=== PATIENT | male | born 1960 | race Caucasian/White ===

== ENCOUNTER → 2018-10-27 | Outpatient (CLI) | payer BC ==
--- NOTE | 2018-10-27 12:03 | XR ---
EXAMINATION TYPE: XR chest 2V DATE OF EXAM: 10/27/2018 HISTORY: J44.0. REFERENCE: NONE. FINDINGS: Lung volumes are mildly prominent. The lungs are clear. Pleural spaces are clear. The heart is not enlarged. IMPRESSION: PLEASE CORRELATE FOR COPD.
== END | disposition home or self-care (01) ==
LOC: RADXRMAIN 11:36
PROVIDERS: ATTEND Family Medicine
DX: J44.0 Chronic obstructive pulmonary disease with (acute) lower respiratory infection (principal)
CPT/HCPCS: 71046

== ENCOUNTER 2019-12-16 06:49 | Day surgery (SDC) | payer BC ==
[2019-12-12 10:14] VITALS: BMI 36.9
[~2019-12-16 06:49] MED LIST: LACTATED RINGERS 1,000 ML IV SCH; LIDOCAINE 1% 20 ML VIAL (10MG/ML) FOR IV START INTRADERMA PRN
[2019-12-16 07:12] VITALS: TEMP 98.8
[2019-12-16] MEDS ORDERED: LIDOCAINE 1% INJ 10MG/ML (20 ML MDV) ONE (07:30)
[2019-12-16] MEDS ORDERED: PROPOFOL 10 MG/ML 20 ML VIAL IV ONE (07:30)
[2019-12-16 08:12] VITALS: RESP 16
--- NOTE | 2019-12-16 08:13 | P.PCN ---
Date of Procedure: 12/16/19 Description of Procedure: BRIEF HISTORY: Patient is a 59-year-old male with a past medical history of colon polyps here for follow-up with outpatient colonoscopy. Reports last colonoscopy in 2014. Physical history of colon polyps in past. No family history of colon cancer. No change in bowel habits, blood per rectum or abdominal pain. PROCEDURE PERFORMED: Colonoscopy with polypectomy . PREOPERATIVE DIAGNOSIS: History of colon polyps, last colonoscopy 2014 ESTIMATED BLOOD LOSS: Minimal. IV sedation per Anesthesia. PROCEDURE: After informed consent was obtained, the patient, was brought into the endoscopy unit. IV sedation was administered by Anesthesia under continuous monitoring. Digital rectal examination was normal. Initially the Olympus CF-190 flexible video colonoscope was then inserted in the rectum, gradually advanced into the cecum without any difficulty. Careful examination was performed as the scope was gradually being withdrawn. Ileocecal valve and the appendiceal orifice were visualized and appeared normal. Prep was excellent. Mucosa of the cecum, ascend ing colon, transverse colon, descending colon, sigmoid colon, and rectum appeared normal. 2 ascending colon polyps measuring 3 mm in size and 8 mm in size removed with cold snare polypectomy. Diminutive 2 mm sigmoid polyp removed with cold forcep polypectomy. Multiple small mouth diverticula noted in the sigmoid colon. Retroflexion was performed in the rectum and no lesions were seen. The patient tolerated the procedure well. IMPRESSION: 2 ascending colon polyps removed with cold snare polypectomy. Diminutive sigmoid colon polyp removed with cold forcep polypectomy. Mild sigmoid diverticulosis. RECOMMENDATIONS: Findings of this examination were discussed with the patient and his friend. Okay to resume diet. Okay to resume medications. Hold pathology from polypectomy. Would recommend repeat colonoscopy in 5 years for history of colon polyps.
[2019-12-16 08:25] VITALS: BP 120/70; PULSE 69
== END 2019-12-16 08:53 | disposition home or self-care (01) ==
LOC: ORWHC2ENDO 06:49
PROVIDERS: ATTEND Internal Medicine
DX: Z12.11 Encounter for screening for malignant neoplasm of colon (principal); K57.30 Diverticulosis of large intestine without perforation or abscess without bleeding; K63.5 Polyp of colon; Z72.0 Tobacco use; Z86.010 Personal history of colon polyps; Z98.890 Other specified postprocedural states
CPT/HCPCS: 88305; 45380; 45385; J2001; J2704

== ENCOUNTER 2021-02-27 14:15 | Observation (INO) | payer BC ==
[2021-02-27 14:34] LABS: Glucose,Whole Blood 128 mg/dL (75-99)
--- NOTE | 2021-02-27 14:35 | ED ---
General Adult HPI - General Source: patient, family, RN notes reviewed, old records reviewed Mode of arrival: wheelchair Limitations: no limitations <Donal Huerta - Last Filed: 02/27/21 14:54> <Lizz Flynn - Last Filed: 02/27/21 16:36> - General Chief complaint: Neuro Symptoms/Deficit Stated complaint: Poss Stroke Time Seen by Provider: 02/27/21 14:26 - History of Present Illness Initial comments: 61-year-old male presenting with right arm numbness and weakness and slurred speech. Symptoms began this morning sometime between 9 and 10 AM. He is presenting at proximally 2:30 PM. His symptoms have resolved. He had initially noted that he had some right hand numbness and weakness which resolved without treatment. Patient had taken aspirin at home. Then he was speaking on the telephone in his friend noticed some slurred speech. This resolved during transport. He reports that his symptoms have completely resolved. He states he feels some tingling in his right hand but otherwise no complaints. No current chest pain. No fever. No abdominal pain. (Donal Huerta) - Related Data Home Medications Medication Instructions Recorded Confirmed Ascorbic Acid [Vitamin C] 500 mg PO DAILY 07/02/15 02/27/21 Multivitamin [Men's Multi-Vitamin] 1 cap PO DAILY 07/02/15 02/27/21 [place]-3 Fatty Acids/Fish Oil [Fish 1 cap PO DAILY 07/02/15 02/27/21 Oil 1,000 mg Softgel] Vitamin B Complex 1 cap PO DAILY 07/02/15 02/27/21 Allergies Allergy/AdvReac Type Severity Reaction Status Date / Time No Known Allergies Allergy Verified 02/27/21 16:10 Review of Systems ROS Other: All systems not noted in ROS Statement are negative. <Donal Huerta - Last Filed: 02/27/21 14:54> ROS Other: All systems not noted in ROS Statement are negative. <Lizz Flynn - Last Filed: 02/27/21 16:36> ROS Statement: Those systems with pertinent positive or pertinent negative responses have been documented in the HPI. Past Medical History Additional Past Medical History / Comment(s): pasT hx. colon polyps, hemorrhoids History of Any Multi-Drug Resistant Organisms: None Reported Additional Past Surgical History / Comment(s): hemorrhoidectomy, colonoscopy Past Anesthesia/Blood Transfusion Reactions: No Reported Reaction Past Psychological History: No Psychological Hx Reported Smoking Status: Current every day smoker Past Alcohol Use History: Occasional Past Drug Use History: None Reported - Past Family History Father Family Medical History: Cancer <Donal Huerta - Last Filed: 02/27/21 14:54> General Exam Limitations: no limitations General appearance: alert, in no apparent distress Head exam: Present: atraumatic, normocephalic Eye exam: Present: normal appearance, PERRL ENT exam: Present: normal exam Neck exam: Present: normal inspection. Absent: tenderness, meningismus Respiratory exam: Present: normal lung sounds bilaterally. Absent: respiratory distress, wheezes Cardiovascular Exam: Present: regular rate, normal rhythm GI/Abdominal exam: Present: soft. Absent: distended, tenderness Extremities exam: Present: normal inspection, normal capillary refill. Absent: pedal edema Neurological exam: Present: alert, oriented X3, CN II-XII intact, normal gait. Absent: motor sensory deficit (NIH is 0, no ataxia, normal finger to nose bilaterally. Normal gait.) Psychiatric exam: Present: normal affect, normal mood Skin exam: Present: warm, dry, intact. Absent: cyanosis, diaphoretic <Donal Huerta N - Last Filed: 02/27/21 14:54> Course Vital Signs 02/27/21 02/27/21 02/27/21 14:21 14:30 14:45 Temperature 97.8 F Pulse Rate 72 68 68 Respiratory 18 18 18 Rate Blood Pressure 158/82 158/98 148/85 O2 Sat by Pulse 98 98 98 Oximetry 02/27/21 02/27/21 02/27/21 15:00 15:15 15:30 Temperature Pulse Rate 70 62 61 Respiratory 16 18 18 Rate Blood Pressure 148/92 147/78 158/89 O2 Sat by Pulse 97 97 97 Oximetry EKG Findings - EKG Comments: EKG Findings:: EKG: Normal sinus rhythm, rate 72, NE interval 174, QRS duration 102 and a QTC 418, no ST segment elevation artifact in V5 and V6. <Donal Huerta N - Last Filed: 02/27/21 14:54> Medical Decision Making - Lab Data Result diagrams: 02/27/21 14:51 02/27/21 14:51 <Lizz Flynn - Last Filed: 02/27/21 16:36> - Medical Decision Making Was evaluated by myself. Continues to have no deficits. I did review the patient's laboratory studies imaging. Patient does have mild carotid disease on CT angiography which demonstrates 40% narrowing at the origin of the right internal carotid artery and 25% narrowing at the origin of the left internal carotid artery. These results are discussed the patient. Did recommend admission for neurology consultation, echo and further neurologic assessment. Patient did agree to this. Spoke with Dr. Croft who agreed to admit the patient. He did take 2 baby aspirins this morning. I did give him an additional 2 baby aspirins and started him on atorvastatin. Patient remained in stable condition awaiting a bed (Lizz Flynn) - Lab Data Lab Results 02/27/21 02/27/21 02/27/21 Range/Units 14:32 14:51 14:51 WBC 7.5 (3.8-10.6) k/uL RBC 4.72 (4.30-5.90) m/uL Hgb 15.0 (13.0-17.5) gm/dL Hct 46.8 (39.0-53.0) % MCV 99.1 (80.0-100.0) fL MCH 31.8 (25.0-35.0) pg MCHC 32.1 (31.0-37.0) g/dL RDW 13.6 (11.5-15.5) % Plt Count 289 (150-450) k/uL MPV 7.0 Neutrophils % 55 % Lymphocytes % 29 % Monocytes % 8 % Eosinophils % 6 % Basophils % 1 % Neutrophils # 4.1 (1.3-7.7) k/uL Lymphocytes # 2.2 (1.0-4.8) k/uL Monocytes # 0.6 (0-1.0) k/uL Eosinophils # 0.4 (0-0.7) k/uL Basophils # 0.0 (0-0.2) k/uL PT 9.7 (9.0-12.0) sec INR 0.9 (<1.2) APTT 24.8 (22.0-30.0) sec Sodium (137-145) mmol/L Potassium (3.5-5.1) mmol/L Chloride (98-107) mmol/L Carbon Dioxide (22-30) mmol/L Anion Gap mmol/L BUN (9-20) mg/dL Creatinine (0.66-1.25) mg/dL Est GFR (CKD-EPI)AfAm (>60 ml/min/1.73 sqM) Est GFR (CKD-EPI)NonAf (>60 ml/min/1.73 sqM) Glucose (74-99) mg/dL POC Glucose (mg/dL) 128 H (75-99) mg/dL POC Glu Forensic Identification Specialist ID Beatrice Rico Calcium (8.4-10.2) mg/dL Total Bilirubin (0.2-1.3) mg/dL AST (17-59) U/L ALT (4-49) U/L Alkaline Phosphatase (38-126) U/L Troponin I (0.000-0.034) ng/mL Total Protein (6.3-8.2) g/dL Albumin (3.5-5.0) g/dL 02/27/21 02/27/21 Range/Units 14:51 14:51 WBC (3.8-10.6) k/uL RBC (4.30-5.90) m/uL Hgb (13.0-17.5) gm/dL Hct (39.0-53.0) % MCV (80.0-100.0) fL MCH (25.0-35.0) pg MCHC (31.0-37.0) g/dL RDW (11.5-15.5) % Plt Count (150-450) k/uL MPV Neutrophils % % Lymphocytes % % Monocytes % % Eosinophils % % Basophils % % Neutrophils # (1.3-7.7) k/uL Lymphocytes # (1.0-4.8) k/uL Monocytes # (0-1.0) k/uL Eosinophils # (0-0.7) k/uL Basophils # (0-0.2) k/uL PT (9.0-12.0) sec INR (<1.2) APTT (22.0-30.0) sec Sodium 136 L (137-145) mmol/L Potassium 4.4 (3.5-5.1) mmol/L Chloride 104 (98-107) mmol/L Carbon Dioxide 26 (22-30) mmol/L Anion Gap 6 mmol/L BUN 12 (9-20) mg/dL Creatinine 0.82 (0.66-1.25) mg/dL Est GFR (CKD-EPI)AfAm >90 (>60 ml/min/1.73 sqM) Est GFR (CKD-EPI)NonAf >90 (>60 ml/min/1.73 sqM) Glucose 136 H (74-99) mg/dL POC Glucose (mg/dL) (75-99) mg/dL POC Glu Forensic Identification Specialist ID Calcium 9.2 (8.4-10.2) mg/dL Total Bilirubin 0.5 (0.2-1.3) mg/dL AST 33 (17-59) U/L ALT 34 (4-49) U/L Alkaline Phosphatase 83 (38-126) U/L Troponin I <0.012 (0.000-0.034) ng/mL Total Protein 6.9 (6.3-8.2) g/dL Albumin 4.1 (3.5-5.0) g/dL Disposition <Donal Huerta - Last Filed: 02/27/21 14:54> Is patient prescribed a controlled substance at d/c from ED?: No Decision to Admit Reason: Admit from EC Decision Date: 02/27/21 Decision Time: 16:35 <Lizz Flynn - Last Filed: 02/27/21 16:36> Clinical Impression: Right sided weakness, TIA (transient ischemic attack) Disposition: ADMITTED IP TO THIS HOSP Condition: Stable Referrals: Orion Rodas DO [Primary Care Provider] - 1-2 days
[2021-02-27 15:00] LABS: Basophils % (A) 1 %; Eosinophils # (A) 0.4 k/uL (0-0.7); Eosinophils % (A) 6 %; HCT 46.8 % (39.0-53.0); Lymphocytes # (A) 2.2 k/uL (1.0-4.8); Lymphocytes % (A) 29 %; MCH 31.8 pg (25.0-35.0); MCHC 32.1 g/dL (31.0-37.0); MCV 99.1 fL (80.0-100.0); Monocytes # (A) 0.6 k/uL (0-1.0); Monocytes % (A) 8 %; Neutrophils # (A) 4.1 k/uL (1.3-7.7); Neutrophils % (A) 55 %; Platelet Count 289 k/uL (150-450); RBC 4.72 m/uL (4.30-5.90); RDW 13.6 % (11.5-15.5); WBC 7.5 k/uL (3.8-10.6)
--- NOTE | 2021-02-27 15:08 | CT ---
EXAMINATION TYPE: CT brain wo con for TPA DATE OF EXAM: 02/27/2021 COMPARISON: None HISTORY: Right sided weakness CT DLP: 1140.8 mGycm Automated exposure control for dose reduction was used. Images obtained of the brain without contrast. Ventricles have normal size. There is no mass effect nor midline shift. There is no sign of intracran ial hemorrhage. There is mucosal thickening in the frontal ethmoid sphenoid and maxillary sinuses. Ca lvarium is intact. There is normal aeration of the mastoid sinuses. IMPRESSION: Mild cerebral atrophy. Pansinusitis. No acute intracranial abnormality.
[2021-02-27 15:10] LABS: ALT 34 U/L (4-49); AST 33 U/L (17-59); African American GFR (CKD) >90 (>60 ml/min/1.73 sqM); Albumin 4.1 g/dL (3.5-5.0); Alkaline Phosphatase 83 U/L (38-126); Anion Gap 6 mmol/L; Blood Urea Nitrogen 12 mg/dL (9-20); Calcium 9.2 mg/dL (8.4-10.2); Carbon Dioxide 26 mmol/L (22-30); Chloride 104 mmol/L (98-107); Glucose 136 mg/dL (74-99); Non-African American GFR(CKD) >90 (>60 ml/min/1.73 sqM); Potassium 4.4 mmol/L (3.5-5.1); Sodium 136 mmol/L (137-145); Total Bilirubin 0.5 mg/dL (0.2-1.3); Total Protein 6.9 g/dL (6.3-8.2)
[2021-02-27 15:15] LABS: INR 0.9 (<1.2); Partial Thromboplastin Time 24.8 sec (22.0-30.0); Prothrombin Time 9.7 sec (9.0-12.0)
--- NOTE | 2021-02-27 15:37 | XR ---
EXAMINATION TYPE: XR chest 2V DATE OF EXAM: 02/27/2021 COMPARISON: 06/04/2015 HISTORY: Altered mental status TECHNIQUE: FINDINGS: Heart and mediastinum are normal. Lungs are clear. Diaphragm is normal. Bony thorax is inta ct. There are chest leads. IMPRESSION: Normal chest. No change.
--- NOTE | 2021-02-27 15:56 | CT ---
EXAMINATION TYPE: CT angio head neck DATE OF EXAM: 02/27/2021 COMPARISON: None HISTORY: Right sided weakness in hand CT DLP: mGycm Automated exposure control for dose reduction was used. CONTRAST: Performed with IV Contrast, patient injected with 65 mL of Isovue 370. Images obtained from the aortic arch to the vertex of the brain with IV contrast. There are 3-D post processed images. There is arterial flow in both subclavian arteries. There is atherosclerotic plaque at the aortic arc h. There is arterial flow in the common internal and external carotid arteries bilaterally. There is calcification at the carotid artery bifurcations and estimated 40% stenosis at the origin of the righ t internal carotid artery. There is estimated 25% narrowing at the origin left internal carotid arter y. There is arterial flow in both vertebral arteries. There is no evidence of carotid or vertebral ar [place] aneurysm or dissection. There is arterial flow in the vertebrobasilar artery system. There is arterial flow in the anterior middle and posterior cerebral arteries. There is no mass effec t. There is no evidence of intracranial aneurysm or neovascularity. There is normal enhancement of th e venous sinuses. I see no evidence of intracranial arterial stenosis. IMPRESSION: Atherosclerotic plaque formation at the carotid artery bifurcations with approximate 40% narrowing or igin right internal carotid artery and 25% narrowing at the origin of the left internal carotid arter y. No intracranial angiographic abnormality.
[2021-02-27] MEDS ORDERED: ASPIRIN 81 MG PO STA (16:20)
[2021-02-27] MEDS: ATORVASTATIN 40 MG TAB PO SCH (16:34)
[2021-02-27] MEDS ORDERED: ONDANSETRON 4 MG/2 ML VIAL IVP PRN (19:00)
[2021-02-27] MEDS ORDERED: MORPHINE SULFATE 4 MG/ML SYRINGE IVP PRN (19:00)
[2021-02-27] MEDS ORDERED: ACETAMINOPHEN TAB 325 MG TAB PO PRN (19:00)
[2021-02-27] MEDS: ENOXAPARIN 40 MG/0.4 ML SYRINGE SQ SCH (20:16)
[2021-02-28] MEDS: MULTIVITAMINS, THERA 1 EACH TAB PO SCH (07:58)
[2021-02-28] MEDS: ATORVASTATIN 40 MG TAB PO SCH (07:58)
[2021-02-28] MEDS: ASCORBIC ACID 500 MG TAB PO SCH (07:58)
[2021-02-28] MEDS: ENOXAPARIN 40 MG/0.4 ML SYRINGE SQ SCH (07:58)
[2021-02-28] MEDS: NON FORMULARY DRUG (Vitamin B Complex [Vitamin B Complex] 1 EACH Capsule) PO SCH (07:59)
[2021-02-28] MEDS: NON FORMULARY DRUG (Omega-3 Fatty Acids/Fish Oil [Fish Oil 1,000 Mg Softgel] 1 EACH Capsul PO SCH (07:59)
[2021-02-28] MEDS ORDERED: ASPIRIN 325 MG TAB PO SCH (09:00)
[2021-02-28 09:08] LABS: Chol/HDL Ratio 2.78; LDL Cholesterol,Calculated 92.2 mg/dL (0.0-131.0); VLDL Calculation 14.8 mg/dL (5.00-40.00)
--- NOTE | 2021-02-28 11:52 | P.CNNES ---
History of Present Illness Consult date: 02/28/21 Requesting physician: Lizz Flynn Reason for Consult: Acute transient right upper extremity weakness numbness. History of Present Illness: This is a 60-year-old right-handed gentleman with no significant medical histor y presented to the emergency department on 02/27/2021 for right arm weakness numbness and slurred speech. According to the patient and his symptoms began between 9-10 AM on 02/27/2021 in which he noticed his right hand/foream was numb and weak. Then upon speaking with his friend on the phone he was told his speech was slurred. Prior to this he was normal. He presented to Hospital approximately at 2:30 PM. He denies any involvement of the right lower extremity of the left side. He denies of any headache. Most of his symptoms resolved except continues to have numbness of the right hand finger tips. He said he has numbness of the right thumb for some time. He denies history of stroke or TIA. During yesterday episode he took two ASA 81mg. He denies being on any medication and does not take ASA as daily medication. Denies atrial fibrillation. Denies family history of stroke. He does smoke 1 1/2 to 2 packs for past 30 years. Socially drinks alcohol. Work-up in the hospital consisted of: Initial vital signs: Blood pressure of 150/82, heart rate of 72, respiratory of 18, temperature of 97.8 Fahrenheit oral, pulse ox of 98% at room air. CT of the head is reported as mild cerebral atrophy. Pansinusitis. No acute intracranial abnormality. CT angiography of the head and neck was reported as atherosclerotic plaque formation at the carotid artery bifurcation with proximally 4% narrowing origin right internal carotid artery and 25% narrowing at the origin of left internal carotid artery. EKG is reported as normal sinus rhythm. Normal EKG. On presentation her glucose POC was 128 and the serum was 136. Lipid panel: Triglyceride of 74, cholesterol 167, LDL of 92, HDL of 68. Rest of the CBC and metabolic panel reviewed. Review of Systems Review of system: The 12 point system was reviewed and apparent positive and negative per HPI. Past Medical History Additional Past Medical History / Comment(s): pasT hx. colon polyps, hemorrhoids History of Any Multi-Drug Resistant Organisms: None Reported Additional Past Surgical History / Comment(s): hemorrhoidectomy, colonoscopy Past Anesthesia/Blood Transfusion Reactions: No Reported Reaction Past Psychological History: No Psychological Hx Reported Smoking Status: Current every day smoker Past Alcohol Use History: Occasional Additional Past Alcohol Use History / Comment(s): SMOKES 1 1/2 PACK DAILY SINCE AGE 16 Past Drug Use History: None Reported - Past Family History Father Family Medical History: Cancer Medications and Allergies Home Medications Medication Instructions Recorded Confirmed Type Ascorbic Acid [Vitamin C] 500 mg PO DAILY 07/02/15 02/27/21 History Multivitamin [Men's Multi-Vitamin] 1 cap PO DAILY 07/02/15 02/27/21 History [place]-3 Fatty Acids/Fish Oil [Fish 1 cap PO DAILY 07/02/15 02/27/21 History Oil 1,000 mg Softgel] Vitamin B Complex 1 cap PO DAILY 07/02/15 02/27/21 History Allergies Allergy/AdvReac Type Severity Reaction Status Date / Time No Known Allergies Allergy Verified 02/27/21 16:10 Physical Examination - Vital Signs Vital Signs: Vital Signs Temp Pulse Pulse Resp BP BP Pulse Ox 02/28/21 08:00 16 02/28/21 07:00 97.9 F 65 16 154/82 97 02/28/21 04:37 98.1 F 63 16 142/76 97 02/28/21 02:00 71 16 02/28/21 01:25 98.1 F 71 16 146/89 98 02/27/21 21:40 74 16 02/27/21 21:35 97.9 F 74 16 133/74 96 02/27/21 19:56 98.9 F 80 18 151/93 98 02/27/21 15:30 61 18 158/89 97 02/27/21 15:15 62 18 147/78 97 02/27/21 15:00 70 16 148/92 97 02/27/21 14:45 68 18 148/85 98 02/27/21 14:30 68 18 158/98 98 02/27/21 14:21 97.8 F 72 18 158/82 98 Intake and Output 02/27/21 02/28/21 02/28/21 22:59 06:59 14:59 Intake Total 480 200 Balance 480 200 Intake: Oral 480 200 Other: # Voids 1 1 Weight 117.934 kg GENERAL: The patient is lying in bed and is not in acute distress. CHEST: The heart rate is regular rate rhythm. No murmurs to auscultation. No carotid bruit bilaterally. LUNG: Clear to auscultation bilaterally no wheezing noted throughout. Not labored breathing. ABDOMEN/GI: Bowel sounds present in all 4 quadrants. No tenderness to palpation throughout. NEUROLOGICAL: Higher mental function: The patient is awake, alert, oriented to self, place and time. Patient is following commands. No aphasia and no neglect. Cranial nerves: The pupils are round, equal and reactive to light and accommodation. Visual hernandez are full to confrontation throughout. Extraocular movement is intact no nystagmus is noted. Facial sensation is normal to touch throughout. The facial strength is normal throughout. Hearing is normal bilaterally to hand rub. Tongue is midline and moved [id number] without any difficulty. No dysarthria is noted. Shoulder shrug is normal bilaterally. Motor: Gait is deferred. The strength is 5 over 5 throughout. Normal tone and bulk. Cerebellum: Normal finger to nose heel to chin bilaterally. Sensation: Sensation is normal to touch throughout. Reflexes (right/left): 2+ throughout. Plantars are downgoing bilaterally. Results Yoon virus PCR is not detected. - Laboratory Findings CBC and BMP: 02/27/21 14:51 02/27/21 14:51 Abnormal Lab Findings: Abnormal Labs 02/27/21 02/27/21 14:32 14:51 Sodium 136 L Glucose 136 H POC Glucose (mg/dL) 128 H Assessment and Plan Assessment: Episode of right hand/forearm weakness, numbness and slurred speech with residual still right finger tips numbness: Is likely acute ischemic stroke Chronic tobacco use ( 1 1/2 to 2 PPD) for 30 years Morbid Obesity Plan: CT of the head is reported as mild cerebral atrophy. Pansinusitis. No acute intracranial abnormality. CT angiography of the head and neck was reported as atherosclerotic plaque formation at the carotid artery bifurcation with proximally 4% narrowing origin right internal carotid artery and 25% narrowing at the origin of left internal carotid artery. Lipid panel: Triglyceride of 74, cholesterol 167, LDL of 92, HDL of 68. LDL goal of strokes/TIA is less than 70. IN ED the patient was given aspirin 162 once there was started on aspirin 325 mg daily. I decreased the aspirin to 81 mg and start the patient also on Plavix 75 mg daily. Patient is to be on dual antiplatelets for 21 days then after that to the stop Plavix and to be indefinitely on aspirin 81 mg daily Continue Lipitor 40 mg daily for secondary stroke prophylaxis. 2-D echo is ordered and is pending. I ordered MRI Brain especially since he continues to have numbness. I ordered carotid duplex. Ordered TSH as well as hemoglobin A1c part of the stroke workup. PT OT and OFFICE SUPPORT are consulted. Placed the patient on the every 4 hours neuro checks. The patient is on continuous cardiac morning and that is to be continued. The patient was counseled on tobacco cessation. He is on morphine 4 mg every 6 hours and I would recommend to avoid any sedati on/narcotics/opiate that would affect the patient neurological examination We'll defer the rest of medical management to the primary team. Upon discharge the patient needs to follow-up with a neurologist within 1-2 weeks. The plan is discussed with the patient and his nurse. Thank you for the consultation. Butch Whitley M.D. Neuro-hospitalist Time with Patient: Greater than 30
[2021-02-28] MEDS: NICOTINE 7MG/24HR PATCH TRANSDERM SCH (12:25)
[2021-02-28] MEDS: CLOPIDOGREL 75 MG TAB PO SCH (12:25)
--- NOTE | 2021-02-28 13:30 | US ---
EXAMINATION TYPE: US carotid duplex BILAT DATE OF EXAM: 02/28/2021 COMPARISON: CTA neck one day earlier CLINICAL HISTORY: stroke. Possible stroke. EXAM MEASUREMENTS: RIGHT: Peak Systolic Velocity (PSV) cm/sec ----- Right CCA: 42.9 ----- Right ICA: 111.3 ----- Right ECA: 100.0 ICA/CCA ratio: 2.6 RIGHT: End Diastole cm/sec ----- Right CCA: 7.7 ----- Right ICA: 32.1 ----- Right ECA: 17.6 LEFT: Peak Systolic Velocity (PSV) cm/sec ----- Left CCA: 42.8 ----- Left ICA: 76.2 ----- Left ECA: 73.6 ICA/CCA ratio: 1.8 LEFT: End Diastole cm/sec ----- Left CCA: 10.9 ----- Left ICA: 25.8 ----- Left ECA: 15.4 VERTEBRALS (direction of flow): Right Vertebral: Antegrade Left Vertebral: Antegrade Rhythm: Normal Plaque seen in bilateral bulbs. No elevated velocities. Right significant stenosis. Wall thickenin g. Patton scale images show mild to moderate eccentric plaque at bilateral carotid bulbs right more promin ent than left but velocity measurements and ratios and visualized portion of both internal carotid ar teries is within normal limits. IMPRESSION: Moderate atherosclerotic changes bilaterally without hemodynamically significant stenosi s seen in either internal carotid artery. Findings correlate with CTA neck study one day earlier. Criteria for Assigning % of Stenosis / Diameter reduction (Estimation based on the indirect measurements of the internal carotid artery velocities (ICA PSV). 1. Normal (no stenosis)=ICA PSV < 125 cm/s: ratio < 2.0: ICA EDV<40 cm/s. 2. Less than 50% stenosis=ICA PSV < 125 cm/s: ratio < 2.0: ICA EDV<40 cm/s. 3. 50 to 69% stenosis=ICA PSV of 125 to 230 cm/s: ration 2.0 ? 4.0: ICA EDV 40-100 cm/s. 4. Greater than 70% stenosis to near occlusion= ICA PSV > 230 cm/s: ratio > 4.0: ICA EDV > 100 cm/s. 5. Near occlusion= ICA PSV velocities may be low or undetectable: variable ratio and ICA EDV. 6. Total occlusion=unable to detect flow.
--- NOTE | 2021-02-28 13:49 | P.HPIM ---
History of Present Illness H&P Date: 02/28/21 60 years old male with past medical history of nicotine use comes in to the ER on 02/27 with right arm weakness and numbness and slurring of speech. Symptoms began around 10 in the morning when he was smoking and started noticing numbness and weakness of his right hand. On evaluation in the ER at 2:30 patient's symptoms are already improved and patient was able to speak without any difficulty. He continued to have numbness involving the right thumb for some time which he still has. Patient smokes around one and half to 2 packs for the past 30 years. Denies any other medical problem. He sees his primary care physician once a year. On evaluation of patient's vitals patient is afebrile pulse 63 respiratory rate 16 blood pressure 142/76 oxygen saturation 97% on room airorals. WBC 7.5 hemoglobin 15 INR 0.9 sodium 136 potassium 4.4 urine is 12 creatinine 0.82 glucose is 136, troponin 0.012 liver enzymes are normal LDL is 92 total cholesterol 74 rotavirus was not detected. CT head shows mild cerebral atrophy with pansinusitis. CT angios additional 25% narrowing in the operation of left internal carotid artery and 40% origin of right internal carotid artery. Carotid Dopplers were ordered echo is ordered. Patient continues to have numbness involving the right thumb, MRI ordered for the patient. Review of Systems Constitutional: Denies chills, Denies fever, Denies lethargy, Denies malaise, Denies poor appetite, Denies weakness, Denies weight loss Eyes: denies decreased vision, denies diplopia, denies discharge, denies pain Ears: deny: decreased hearing Ears, nose, mouth and throat: Denies dental pain, Denies headache, Denies nasal discharge, Denies nose pain Cardiovascular: Denies chest pain, Denies decreased exercise tolerance, Denies edema, Denies high blood pressure, Denies irregular heart beat, Denies palpitations, Denies paroxysmal nocturnal dyspnea, Denies rapid heart beat, Denies shortness of breath Respiratory: Denies congestion, Denies cough, Denies cough with sputum, Denies dyspnea, Denies home oxygen, Denies wheezing Gastrointestinal: Denies abdominal pain, Denies change in bowel habits, Denies coffee ground emesis, Denies early satiety, Denies excessive gas, Denies heartburn, Denies hematemesis, Denies hematochezia, Denies loss of appetite, Denies nausea, Denies vomiting Genitourinary: Denies dysuria, Denies flank pain, Denies kidney stones, Denies menorrhagia, Denies urgency, Denies urinary frequency Musculoskeletal: Denies gait dysfunction, Denies limitation of motion, Denies morning stiffness, Denies muscle cramps Integumentary: Denies rash, Denies wounds, Denies brittle nails, Denies change in hair/nails, Denies darkening of skin Neurological: Denies balance difficulties, endorses change in speech resolved, Denies double vision, Denies gait dysfunction, Denies loss of vision, endorses motor disturbance, induces right thumb numbness and tingling Denies paralysis, Denies paresthesias, Denies seizures Psychiatric: Denies anxiety, Denies depression Endocrine: Denies excessive sweating, Denies excessive thirst, Denies high blood sugars, Denies palpitations Hematologic/Lymphatic: Denies easy bruising, Denies lymphadenopathy Past Medical History Additional Past Medical History / Comment(s): pasT hx. colon polyps, hemorrhoids History of Any Multi-Drug Resistant Organisms: None Reported Additional Past Surgical History / Comment(s): hemorrhoidectomy, colonoscopy Past Anesthesia/Blood Transfusion Reactions: No Reported Reaction Past Psychological History: No Psychological Hx Reported Smoking Status: Current every day smoker Past Alcohol Use History: Occasional Additional Past Alcohol Use History / Comment(s): SMOKES 1 1/2 PACK DAILY SINCE AGE 16 Past Drug Use History: None Reported - Past Family History Father Family Medical History: Cancer Medications and Allergies Home Medications Medication Instructions Recorded Confirmed Type Ascorbic Acid [Vitamin C] 500 mg PO DAILY 07/02/15 02/27/21 History Multivitamin [Men's Multi-Vitamin] 1 cap PO DAILY 07/02/15 02/27/21 History Ages [place]-3 Fatty Acids/Fish Oil [Fish 1 cap PO DAILY 07/02/15 02/27/21 History Oil 1,000 mg Softgel] Vitamin B Complex 1 cap PO DAILY 07/02/15 02/27/21 History Allergies Allergy/AdvReac Type Severity Reaction Status Date / Time No Known Allergies Allergy Verified 02/27/21 16:10 Physical Exam Vitals: Vital Signs Temp Pulse Pulse Resp BP BP Pulse Ox 02/28/21 08:00 16 02/28/21 07:00 97.9 F 65 16 154/82 97 02/28/21 04:37 98.1 F 63 16 142/76 97 02/28/21 02:00 71 16 02/28/21 01:25 98.1 F 71 16 146/89 98 02/27/21 21:40 74 16 02/27/21 21:35 97.9 F 74 16 133/74 96 02/27/21 19:56 98.9 F 80 18 151/93 98 02/27/21 15:30 61 18 158/89 97 02/27/21 15:15 62 18 147/78 97 02/27/21 15:00 70 16 148/92 97 02/27/21 14:45 68 18 148/85 98 02/27/21 14:30 68 18 158/98 98 02/27/21 14:21 97.8 F 72 18 158/82 98 Intake and Output 02/27/21 02/28/21 02/28/21 22:59 06:59 14:59 Intake Total 480 200 Balance 480 200 Intake: Oral 480 200 Other: # Voids 1 1 Weight 117.934 kg - Constitutional General appearance: cooperative, no acute distress, obese - EENT Eyes: anicteric sclerae, PERRLA, normal appearance ENT: hearing grossly normal - Neck Neck: no lymphadenopathy, normal ROM, no other, no rigidity, no stridor, no thyromegaly - Respiratory Respiratory: bilateral: CTA, negative: diminished, dullness, rales, rhonchi - Cardiovascular Rhythm: regular Heart sounds: normal: S1, S2 Abnormal Heart Sounds: no systolic murmur, no diastolic murmur, no rub, no S3 Gallop, no S4 Gallop, no click, no other - Gastrointestinal General gastrointestinal: normal bowel sounds, soft - Integumentary Integumentary: no rash - Neurologic Neurologic: CNII-XII intact - Musculoskeletal Musculoskeletal: gait normal, strength equal bilaterally - Psychiatric Psychiatric: A&O x's 3, appropriate affect Results CBC & Chem 7: 02/27/21 14:51 02/27/21 14:51 Labs: Abnormal Lab Results - Last 24 Hours (Table) 02/27/21 02/27/21 Range/Units 14:32 14:51 Sodium 136 L (137-145) mmol/L Glucose 136 H (74-99) mg/dL POC Glucose (mg/dL) 128 H (75-99) mg/dL Thrombosis Risk Factor Assmnt - Choose All That Apply Any of the Below Risk Factors Present?: Yes Each Factor Represents 1 point: Obesity (BMI >25), Swollen legs (current) Other Risk Factors: Yes Each Risk Factor Represents 2 Points: Age 61-74 years Other congenital or acquired thrombophilia - If yes, enter type in comment: No Thrombosis Risk Factor Assessment Total Risk Factor Score: 4 Thrombosis Risk Factor Assessment Level: Moderate Risk Assessment and Plan Plan: #1 right hand/forearm weakness with numbness and slurring speech with resident of right fingertip numbness likely stroke. Carotid Dopplers and CT with moderate stenosis, CT head negative for any ischemic or hemorrhagic stroke. MRI pending. Continue aspirin 81 mg with Plavix 75 mg daily for 21 days dual anticoagulation followed by aspirin 81 daily for lifelong. Lipitor 40 mg by mouth daily #2 tobacco abuse nicotine patch 21 mg/24 hour 1 patch a day #3 DVT prophylaxis with Lovenox 40 subcu daily #4 CODE STATUS full code #5 disposition likely discharge tomorrow
[2021-02-28 18:07] LABS: Hemoglobin A1C 5.2 % (4.0-6.0)
[2021-02-28] MEDS ORDERED: MELATONIN 3 MG TABLET PO SCH (22:45)
[2021-03-01] MEDS: NON FORMULARY DRUG (Omega-3 Fatty Acids/Fish Oil [Fish Oil 1,000 Mg Softgel] 1 EACH Capsul PO SCH (08:01)
[2021-03-01] MEDS: NON FORMULARY DRUG (Vitamin B Complex [Vitamin B Complex] 1 EACH Capsule) PO SCH (08:01)
[2021-03-01] MEDS: NICOTINE 7MG/24HR PATCH TRANSDERM SCH (08:03)
[2021-03-01] MEDS: CLOPIDOGREL 75 MG TAB PO SCH (08:03)
[2021-03-01] MEDS: ENOXAPARIN 40 MG/0.4 ML SYRINGE SQ SCH (08:03)
[2021-03-01] MEDS: ATORVASTATIN 40 MG TAB PO SCH (08:03)
[2021-03-01] MEDS: MULTIVITAMINS, THERA 1 EACH TAB PO SCH (08:03)
[2021-03-01] MEDS: ASCORBIC ACID 500 MG TAB PO SCH (08:03)
[2021-03-01 08:13] VITALS: BP 132/77; PULSE 60; RESP 16; TEMP 97.9
[2021-03-01] MEDS ORDERED: ASPIRIN 81 MG PO SCH (09:00)
--- NOTE | 2021-03-01 09:30 | MR ---
MR brain without contrast HISTORY: Stroke, right-sided weakness, right hand numbness and weakness Multiplanar multisequence imaging obtained through the brain, correlation to CT brain 02/27/2021 There is restricted diffusion noted in the periventricular white matter on the left, corresponding hy perintensity is present and inversion recovery T2-weighted sequences, additional scattered hyperinten sities are present on inversion recovery T2-weighted sequences in the pericallosal, periventricular, subcortical white matter. Approximately 30 lesions are present. There is no evident hemorrhage or hyd rocephalus. There are normal vascular flow voids. Cerebellopontine angles, corpus callosum, pituitary , cervical medullary junction are within normal limits. Extensive inflammatory change is again noted involving the sphenoid sinus, maxillary sinuses, ethmoid air cells and frontal sinus. Orbits show sym metric appearance. IMPRESSION: Subacute infarct is noted. Age-related changes of atrophy and chronic small vessel ischem ia. Extensive sinus disease.
--- NOTE | 2021-03-01 11:15 | ECHOF ---
Referral Reason:Thrombus MEASUREMENTS -------- HEIGHT: 175.3 cm WEIGHT: 117.9 kg BP: 145/86 RVIDd: 3.8 cm (< 3.3) IVSd: 0.8 cm (0.6 - 1.1) LVIDd: 5.2 cm (3.9 - 5.3) LVPWd: 1.1 cm (0.6 - 1.1) IVSs: 1.4 cm LVIDs: 3.9 cm LVPWs: 2.1 cm LAESV Index (A-L): 26.33 ml/m Ao Diam: 3.4 cm (2.0 - 3.7) AV Cusp: 2.2 cm (1.5 - 2.6) LA Diam: 4.4 cm (2.7 - 3.8) MV EXCURSION: 21.622 mm (> 18.000) MV EF SLOPE: 203 mm/s (70 - 150) EPSS: 0.8 cm MV E Arturo: 0.93 m/s MV DecT: 219 ms MV A Arturo: 0.84 m/s MV E/A Ratio: 1.10 RAP: 5.00 mmHg RVSP: 25.23 mmHg FINDINGS -------- Sinus rhythm. This was a technically difficult study with suboptimal views. The left ventricular size is normal. Left ventricular wall thickness is normal. Overall left vent ricular systolic function is mild-moderately impaired with, an EF between 40 - 45 %. The right ventricle is mild to moderately enlarged. Normal LA size by volume 22+/-6 ml/m2. The right atrial size is normal. 5.0mg of Lumason was utilized for enhancement of images Interatrial and interventricular septum intact. There is no evidence of aortic regurgitation. There is no evidence of aortic stenosis. There is trace to mild mitral regurgitation. Mild tricuspid regurgitation present. There is no evidence of pulmonary hypertension. The right v entricular systolic pressure, as measured by Doppler, is 25.23mmHg. There is no pulmonic regurgitation present. The aortic root size is normal. IVC Not well visulized. There is no pericardial effusion. CONCLUSIONS -------- 1. The left ventricular size is normal. 2. Left ventricular wall thickness is normal. 3. Overall left ventricular systolic function is mild-moderately impaired with, an EF between 40 - 45 %. 4. The right ventricle is mild to moderately enlarged. 5. There is trace to mild mitral regurgitation. 6. Mild tricuspid regurgitation present. MECHANICAL MAINTENANCE SUPERVISOR: Raysa Alex RDCS
--- NOTE | 2021-03-01 12:47 | P.DS ---
Providers Date of admission: 02/27/21 16:24 Expected date of discharge: 03/01/21 Attending physician: Marjan Croft MD Consults: 02/27/21 16:25 Consult Physician Urgent Consulting Provider: Butch Whitley Consult Reason/Comments: acute transient right upper extremity weakness, suspected tia Do you want consulting provider notified?: Yes Primary care physician: [facility] Course: 60-year-old male with past medical history of nicotine use comes in to the ER on 02/27 with right arm weakness and numbness and slurring of speech. Symptoms began around 10 in the morning when he was smoking and started noticing numbness and weakness of his right hand. On evaluation in the ER at 2:30 patient's symptoms are already improved and patient was able to speak without any difficulty. He continued to have numbness involving the right thumb for some time which he still has. Patient smokes around one and half to 2 packs for the past 30 years. Denies any other medical problem. He sees his primary care physician once a year. On evaluation of patient's vitals patient is afebrile pulse 63 respiratory rate 16 blood pressure 142/76 oxygen saturation 97% on room airorals. WBC 7.5 hemoglobin 15 INR 0.9 sodium 136 potassium 4.4 urine is 12 creatinine 0.82 glucose is 136, troponin 0.012 liver enzymes are normal LDL is 92 total cholesterol 74 rotavirus was not detected. CT head shows mild cerebral atrophy with pansinusitis. CT angios additional 25% narrowing in the operation of left internal carotid artery and 40% origin of right internal carotid artery. Carotid Dopplers were ordered echo is ordered. Patient continues to have numbness involving the right thumb, MRI ordered for the patient. 03/01: The patient is without deficits, no slurred speech. Patient has been reevaluated by neurology with recommendations to continue aspirin 81 mg daily and Plavix 75 mg daily for 21 days, then stop Plavix and maintain aspirin 81 mg daily. Patient to be continued on Lipitor 40 mg daily. Prescription for nicotine patch will also be sent for the patient for tobacco cessation. Patient is cleared for discharge by neurology. She'll be discharged home today in stable condition. Echocardiogram reveals EF of 40-45% with trace to mild mitral regurgitation, mild tricuspid regurgitation. MRI of the brain revealed subacute infarct is noted. In the body of the report there is scattered hyperintensities on inversion recovery T2 weighted sequences and appears also and periventricular, subcortical white matter, approximately 30 lesions are present. No hemorrhage or hydrocephalus. Patient denies having any symptoms. Carotid ultrasound revealed moderate atherosclerotic changes bilaterally without hemodynamically significant stenosis on either internal carotid artery. DISCHARGE DIAGNOSES 1. Acute ischemic stroke, left posterior periventricular white matter, likely lacunar from small vessel disease. 2. Hypertension. 3. Chronic tobacco use and dependence, smoking cessation. 4. Dyslipidemia. 5. Obesity. Discharge plan: HOME Impression and plan of care have been directed as dictated by the signing physician. Linda Leslie nurse practitioner acting as scribe for signing physician. Patient Condition at Discharge: Good Plan - Discharge Summary New Discharge Prescriptions: New Atorvastatin [Lipitor] 40 mg PO DAILY #30 tab Aspirin 81 mg PO DAILY #0 chew Nicotine 7Mg/24Hr Patch [Habitrol] 1 patch TRANSDERM DAILY #30 patch Clopidogrel [Plavix] 75 mg PO DAILY #21 tab Continue Ascorbic Acid [Vitamin C] 500 mg PO DAILY Vitamin B Complex 1 cap PO DAILY [place]-3 Fatty Acids/Fish Oil [Fish Oil 1,000 mg Softgel] 1 cap PO DAILY Multivitamin [Men's Multi-Vitamin] 1 cap PO DAILY Discharge Medication List Ascorbic Acid [Vitamin C] 500 mg PO DAILY 07/02/15 [History] Multivitamin [Men's Multi-Vitamin] 1 cap PO DAILY 07/02/15 [History] [place]-3 Fatty Acids/Fish Oil [Fish Oil 1,000 mg Softgel] 1 cap PO DAILY 07/02/15 [History] Vitamin B Complex 1 cap PO DAILY 07/02/15 [History] Aspirin 81 mg PO DAILY #0 chew 03/01/21 [Rx] Atorvastatin [Lipitor] 40 mg PO DAILY #30 tab 03/01/21 [Rx] Clopidogrel [Plavix] 75 mg PO DAILY #21 tab 03/01/21 [Rx] Nicotine 7Mg/24Hr Patch [Habitrol] 1 patch TRANSDERM DAILY #30 patch 03/01/21 [Rx] Follow up Appointment(s)/Referral(s): Orion Rodas DO [Primary Care Provider] - 1 Week Demetrius Diaz DO [STAFF PHYSICIAN] - 2 Weeks Patient Instructions/Handouts: Stroke (DC) Discharge Disposition: HOME SELF-CARE
--- NOTE | 2021-03-01 13:42 | P.PN ---
Subjective Progress Note Date: 03/01/21 Patient is a 60-year-old male came to the hospital on 02/27/2021 for acute transient right upper extremity weakness and numbness and slurred speech. Patient was seen by Dr. Butch Whitley. Please refer to his note for details from yesterday. Patient's main vascular risk factors include chronic tobacco use of one and a half to 2 pack per day for 30 years and morbid obesity. Patient states he is doing well. Denies any headache, any focal symptoms or weakness. Objective - Vital Signs Vital signs: Vital Signs Temp 97.9 F 03/01/21 07:00 Pulse 60 03/01/21 07:00 Resp 16 03/01/21 07:00 BP 132/77 03/01/21 07:00 Pulse Ox 97 03/01/21 07:00 Intake & Output 02/28/21 03/01/21 03/01/21 18:59 06:59 18:59 Intake Total 700 240 Balance 700 240 Intake: Oral 700 240 Other: # Voids 1 1 - Exam GENERAL: The patient is sitting in the recliner and is not in acute distress. CHEST: The heart rate is regular rate rhythm. No murmurs to auscultation. No carotid bruit bilaterally. LUNG: Clear to auscultation bilaterally no wheezing noted throughout. Not labored breathing. ABDOMEN/GI: Bowel sounds present in all 4 quadrants. No tenderness to palpation throughout. NEUROLOGICAL: Higher mental function: The patient is awake, alert, oriented to self, place and time. Patient is following commands. No aphasia and no neglect. Cranial nerves: The pupils are round, equal and reactive to light and accommodation. Visual hernandez are full to confrontation throughout. Extraocular movement is intact no nystagmus is noted. Facial sensation is normal to touch throughout. The facial strength is normal throughout. Hearing is normal bilaterally to hand rub. Tongue is midline and moved [id number] without any difficulty. No dysarthria is noted. Shoulder shrug is normal bilaterally. Motor: Gait is deferred. The strength is 5 over 5 throughout. Normal tone and bulk. Cerebellum: Normal finger to nose heel to chin bilaterally. Sensation: Sensation is normal to touch throughout. Reflexes (right/left): 2+ throughout. Plantars are downgoing bilaterally. - Labs CBC & Chem 7: 02/27/21 14:51 02/27/21 14:51 Assessment and Plan Assessment: * Acute ischemic stroke, left posterior periventricular white matter, likely lacunar from small vessel disease. * Hypertension * Chronic tobacco use of one and a half to 2 pack per day for 30 years * Obesity * Dyslipidemia Plan: * MRI of the brain revealed subacute infarct involving the periventricular white matter on the left, likely lacunar. * CTA of head and neck showed atherosclerotic plaque formation at the carotid artery bifurcations with approximate 40% narrowing region right ICA and 25% narrowing or region of the left ICA. * Carotid Doppler showed moderate atherosclerotic changes bilaterally without hemodynamically significant stenosis seen in either ICA. * 2-D echo revealed normal left ventricular size. EF is 40-45%. Right ventricle is mild to moderately enlarged. Mild TR. * Hemoglobin A1c 5.2. * Lipid panel showed cholesterol 167, LDL 92.2, HDL 60 and triglycerides 74. * Yoon virus PCR negative. * Continue aspirin 81 mg and Plavix 75 mg daily for 21 days, and then stop Plavix and maintain on aspirin 81 mg. * Continue Lipitor 40 mg. * Recommend complete tobacco cessation. * Neurologically clear for discharge.
== END 2021-03-01 15:01 | disposition home or self-care (01) ==
LOC: EC 14:15 → 6NMEDSUR 16:24
PROVIDERS: ADMIT Internal Medicine; ATTEND Internal Medicine
DX: I63.9 Cerebral infarction, unspecified (principal); G83.21 Monoplegia of upper limb affecting right dominant side; R47.81 Slurred speech; F17.210 Nicotine dependence, cigarettes, uncomplicated; I10 Essential (primary) hypertension; E78.5 Hyperlipidemia, unspecified; Z68.38 Body mass index [BMI] 38.0-38.9, adult; E66.01 Morbid (severe) obesity due to excess calories; Z20.822 Contact with and (suspected) exposure to COVID-19; J32.4 Chronic pansinusitis; M79.89 Other specified soft tissue disorders; Z87.19 Personal history of other diseases of the digestive system; Z80.9 Family history of malignant neoplasm, unspecified
CPT/HCPCS: 96372 ×3; 99285; 36415; 93005; 93306; 97161; 97165; 92523; 80061; 80053; 84443; 84484; 85025; 85610; 85730; 83036; 87635; 71046; 93880; 70496; 70450; 70498; 70551; G0378 ×3; S4990 ×2; J1650 ×3; Q9950; Q9967

== ENCOUNTER → 2021-04-06 | Outpatient (CLI) | payer BC ==
--- NOTE | 2021-04-13 12:51 | EM ---
EVENT MONITOR AGE:: 60 SEX:: M INDICATIONS:: TIA. RESULTS: There is data from 04/06-04/12 and it shows that the patient had a runs of atrial fibrillation with poorly controlled ventricular rate. I called the patient. He tells me that the neurologist who ordered the test has already gotten in touch with him and he is dealing with it. MMSAM / KEVIN: [id number] /
== END | disposition home or self-care (01) ==
LOC: RADECHMAIN 12:03
PROVIDERS: ATTEND Psychiatry & Neurology Neurology
DX: I67.9 Cerebrovascular disease, unspecified (principal); I48.91 Unspecified atrial fibrillation
CPT/HCPCS: 93270

== ENCOUNTER 2021-05-04 07:21 | Day surgery (SDC) | payer BC ==
[2021-04-30 10:41] VITALS: BMI 40.1
[~2021-05-04 07:21] MED LIST changes: +ALPRAZolam 0.25 MG TAB PO PRN; +ALPRAZolam 0.5 MG TAB PO PRN; +ASPIRIN 325 MG TAB PO ONE; +ATORVASTATIN 80 MG TAB PO ONE; +HEPARIN SODIUM,PORCINE 10,000 UNIT in SODIUM CHLORIDE 0.9% 1,000 ML IRRIGATION PRN; +HEPARIN SODIUM,PORCINE 2,500 UNIT in SODIUM CHLORIDE 0.9% 250 ML IRRIGATION PRN; -LACTATED RINGERS 1,000 ML IV SCH; -LIDOCAINE 1% 20 ML VIAL (10MG/ML) FOR IV START INTRADERMA PRN; +NITROGLYCERIN SL TABS 0.4 MG TAB SUBLINGUAL PRN; +SODIUM CHLORIDE 0.9% 1,000 ML in EMPTY BAG 1 BAG IV ONE
[2021-05-04 07:46] VITALS: TEMP 98.3
[2021-05-04] MEDS ORDERED: LOSARTAN 50 MG TAB PO STA (07:58)
[2021-05-04] MEDS ORDERED: METOPROLOL SUCCINATE (ER) 50 MG TAB.ER.24H PO STA (07:59)
[2021-05-04 08:01] LABS: Basophils % (A) 1 %; Eosinophils # (A) 0.7 k/uL (0-0.7); Eosinophils % (A) 8 %; HCT 43.8 % (39.0-53.0); HGB 14.6 gm/dL (13.0-17.5); Lymphocytes # (A) 2.5 k/uL (1.0-4.8); Lymphocytes % (A) 31 %; MCH 32.5 pg (25.0-35.0); MCHC 33.3 g/dL (31.0-37.0); MCV 97.4 fL (80.0-100.0); Mean Platelet Volume 6.6; Monocytes # (A) 0.6 k/uL (0-1.0); Monocytes % (A) 7 %; Neutrophils # (A) 4.1 k/uL (1.3-7.7); Neutrophils % (A) 51 %; Platelet Count 274 k/uL (150-450); RBC 4.49 m/uL (4.30-5.90); RDW 13.5 % (11.5-15.5)
[2021-05-04] MEDS ORDERED: SODIUM CHLORIDE 0.9% 500 ML 500 ML IV ONE (08:03)
[2021-05-04 08:16] LABS: African American GFR (CKD) >90 (>60 ml/min/1.73 sqM); Anion Gap 5 mmol/L; Blood Urea Nitrogen 16 mg/dL (9-20); Calcium 9.1 mg/dL (8.4-10.2); Carbon Dioxide 27 mmol/L (22-30); Chloride 107 mmol/L (98-107); Glucose 107 mg/dL (74-99); Non-African American GFR(CKD) >90 (>60 ml/min/1.73 sqM); Potassium 4.5 mmol/L (3.5-5.1); Sodium 139 mmol/L (137-145)
[2021-05-04] MEDS ORDERED: METOPROLOL TARTRATE 50 MG TAB PO ONE (08:16)
[2021-05-04] MEDS ORDERED: VERAPAMIL 2.5 MG/ML 2 ML AMP ONE (08:46)
[2021-05-04] MEDS ORDERED: LIDOCAINE 1% INJ 10MG/ML (20 ML MDV) ONE (08:47)
[2021-05-04] MEDS ORDERED: HEPARIN SODIUM 1,000 UN/ML (10ML VL) ONE (08:47)
[2021-05-04] MEDS ORDERED: fentaNYL (PF) 50 MCG/ML 2 ML AMP ONE (08:47)
[2021-05-04] MEDS ORDERED: fentaNYL (PF) 50 MCG/ML 2 ML AMP IV ONE (08:56)
[2021-05-04] MEDS ORDERED: MIDAZOLAM 2 MG/2 ML VIAL IV ONE (08:56)
[2021-05-04] MEDS ORDERED: LIDOCAINE 1% INJ 10MG/ML (20 ML MDV) SQ ONE (08:58)
[2021-05-04] MEDS ORDERED: LOSARTAN 50 MG TAB PO SCH (09:00)
[2021-05-04] MEDS ORDERED: VERAPAMIL SYRINGE (5 MG/10 ML) INTRAARTER ONE (09:00)
[2021-05-04] MEDS ORDERED: METOPROLOL SUCCINATE (ER) 50 MG TAB.ER.24H PO SCH (09:00)
[2021-05-04] MEDS ORDERED: HEPARIN SODIUM 1,000 UN/ML (10ML VL) IV ONE (09:02)
[2021-05-04] MEDS ORDERED: IOPAMIDOL-370 125ML BTL INJ ONE (09:35)
[2021-05-04 10:37] VITALS: PULSE 58
--- NOTE | 2021-05-04 12:36 | P.CARDCATH ---
Description of Procedure: PROCEDURES PERFORMED: Left heart catheterization, bilateral coronary angiography, iFR RCA, left ventriculogram INDICATION: Cardiomyopathy HISTORY: Patient is a pleasant 60-year-old male with history of recently diagnosed stroke, tobacco abuse, hypertension, hyperlipidemia, atrial fibrillation and mild cardiomyopathy with ejection fraction 40-45%. He is not overly active however does have some mild dyspnea on exertion. Secondary to cardiomyopathy left heart catheterization was recommended to rule out significant coronary artery disease. CONSENT:I have discussed the risks, benefits and alternative therapies for the above-mentioned procedure and for both sedation/analgesia as well as necessary blood product administration, if indicated, as they pertain to this patient. The patient has indicated understanding and acceptance of the risks and procedures discussed. PROCEDURE: After the risks, benefits and alternatives of the above mentioned procedure explained in detail with the patient, informed consent was obtained. Patient was taken to the catheterization lab and prepped and draped in usual fashion. 1% lidocaine was used to anesthetize the right radial artery. A 6- English sheath was placed in the right radial artery using modified Seldinger technique. Left coronary angiography was performed with a 5-English JL 3.5 catheter and right coronary angiography was performed with a 6-English AR2 catheter in various views. There was mild dampening noted with the AR2 catheter. A 5-English pigtail catheter was inserted into the left ventricle and pressure measurements were obtained. Left ventriculography was performed in the MARTIN projection with a power injection. The decision was made to perform iFR of the RCA. A 6-English AL 0.75 guide was used to engage the RCA. Heparin was given for ACT greater than 250. A 0.014 pressure wire was introduced and normalized. This was then advanced into the mid to distal RCA. First reading had some dampening however after giving nitroglycerin, reading was repeated with iFR reading of 0.90 which was normal. The wire and catheter were then removed. The right radial sheath was removed and a TR band was placed with hemostasis achieved. The patient tolerated the procedure well. Patient was transported back to the post catheterization holding area in stable condition. Conscious Sedation: Patient was monitored under the direct supervision of vision of myself for conscious sedation using Versed and fentanyl for a total duration of 49 minutes HEMODYNAMICS: Ao: 137/76 LV: 132/2, LVEDP 15mmHg SELECTIVE CORONARY ARTERIOGRAPHY: LEFT MAIN: The left main is a large caliber vessel which bifurcates into the LAD and circumflex. There is minimal 10% stenosis. LEFT ANTERIOR DESCENDING CORONARY ARTERY: LAD is a large caliber vessel which wraps around to the apex. There are mild luminal irregularities and otherwise no significant stenosis. LEFT CIRCUMFLEX CORONARY ARTERY: Left circumflex is a moderate caliber vessel with mild luminal irregularities. It gives off a sinoatrial branch. RIGHT CORONARY ARTERY: The right coronary artery is a moderate caliber vessel which gives off a PDA and PLV branch and is the dominant vessel. There is heavy proximal RCA stenosis with diffuse 20-30% stenosis and a more focal proximal 50- 60% RCA stenosis. iFR RCA 0.90. LEFT VENTRICULOGRAPHY: Left ventricular ejection fraction is 55% without wall motion abnormalities. There is no significant mitral regurgitation and no significant gradient with pullback across the aortic valve. FINAL IMPRESSION: 1. Mild to moderate CAD as described aboved with only mild luminal irregularities of the left system and 50-60% proximal RCA with iFR 0.90. 2. Normal ejection fraction 55% percent without wall motion abnormalities. PLAN: 1. Aggressive risk factor modification per most recent ACC/AHA guidelines. 2. Follow-up in the office in 1-2 weeks.
[2021-05-04 12:56] VITALS: BP 122/67; RESP 18
== END 2021-05-04 14:19 | disposition home or self-care (01) ==
LOC: CATHCVL 07:21
PROVIDERS: ATTEND Internal Medicine
DX: I25.10 Atherosclerotic heart disease of native coronary artery without angina pectoris (principal); I11.0 Hypertensive heart disease with heart failure; I50.22 Chronic systolic (congestive) heart failure; I42.9 Cardiomyopathy, unspecified; E78.5 Hyperlipidemia, unspecified; Z20.822 Contact with and (suspected) exposure to COVID-19; E66.9 Obesity, unspecified; Z68.41 Body mass index [BMI] 40.0-44.9, adult; Z86.73 Personal history of transient ischemic attack (TIA), and cerebral infarction without residual deficits; Z79.01 Long term (current) use of anticoagulants; Z82.49 Family history of ischemic heart disease and other diseases of the circulatory system; I48.0 Paroxysmal atrial fibrillation; Z72.0 Tobacco use; Z79.82 Long term (current) use of aspirin; Z79.899 Other long term (current) drug therapy
CPT/HCPCS: 93571; 93458; 80048; 85025; 87635; J2250; J2001; J3010; J1644; Q9967

== ENCOUNTER 2021-06-08 14:12 | Emergency (ER) | payer BC ==
[2021-06-08] MEDS ORDERED: ACETAMINOPHEN TAB 325 MG TAB PO STA (15:03)
--- NOTE | 2021-06-08 15:07 | ED ---
Fever HPI - General Chief Complaint: Fever Stated Complaint: Fever Source: patient, RN notes reviewed Mode of arrival: ambulatory Limitations: no limitations - History of Present Illness Initial Comments: 60-year-old well-appearing alert and oriented 4 white male presents to the emergency room with complaints of sudden onset of fever around 11:30 today while at work. Patient states he also feels a little bit of weakness and some nausea. Patient states that he had a cardiac cath on May 03 has been feeling fine since. Patient states that he was at work today and had a sudden onset of chills. Patient states that he also noticed some redness and tenderness in his right lower leg but denies any injury. MD Complaint: fever, weakness -: hour(s) (4) Temperature Source: oral Associated Symptoms: chills, nausea Treatments Prior to Arrival: Aspirin - Related Data Home Medications Medication Instructions Recorded Confirmed Multivitamin [Men's Multi-Vitamin] 1 cap PO DAILY 07/02/15 06/08/21 Vitamin B Complex 1 cap PO DAILY 07/02/15 06/08/21 Aspirin 81 mg PO DAILY 04/30/21 06/08/21 Metoprolol Succinate [Toprol XL] 50 mg PO DAILY 04/30/21 06/08/21 buPROPion XL [Wellbutrin Xl] 150 mg PO DAILY 04/30/21 06/08/21 Ascorbic Acid [Vitamin C] 1,000 mg PO DAILY 06/08/21 06/08/21 Atorvastatin Calcium [Lipitor] 40 mg PO DAILY 06/08/21 06/08/21 Fish Oil/Dha/Epa [Fish Oil 1,200 1 cap PO DAILY 06/08/21 06/08/21 mg Fish Oil] Losartan Potassium [Cozaar] 25 mg PO DAILY 06/08/21 06/08/21 Warfarin Sodium 2.5 mg PO WESA 06/08/21 06/08/21 Warfarin Sodium 5 mg PO SUMOTUTHFR 06/08/21 06/08/21 Previous Rx's Medication Instructions Recorded Cephalexin [Keflex] 500 mg PO Q6HR 7 Days #28 cap 06/08/21 Allergies Allergy/AdvReac Type Severity Reaction Status Date / Time No Known Allergies Allergy Verified 06/08/21 16:21 Review of Systems ROS Statement: Those systems with pertinent positive or pertinent negative responses have been documented in the HPI. ROS Other: All systems not noted in ROS Statement are negative. Past Medical History Past Medical History: Atrial Fibrillation, CVA/TIA, Hyperlipidemia, Hypertension Additional Past Medical History / Comment(s): hospitalized in February for TIA-no residual effects History of Any Multi-Drug Resistant Organisms: None Reported Additional Past Surgical History / Comment(s): hemorrhoidectomy, colonoscopy Past Anesthesia/Blood Transfusion Reactions: No Reported Reaction Past Psychological History: No Psychological Hx Reported Smoking Status: Former smoker Past Alcohol Use History: Occasional Past Drug Use History: None Reported - Past Family History Father Family Medical History: Cancer General Exam Limitations: no limitations General appearance: alert, in no apparent distress Head exam: Present: atraumatic, normocephalic, normal inspection Eye exam: Present: normal appearance, PERRL, EOMI. Absent: scleral icterus, conjunctival injection, periorbital swelling ENT exam: Present: normal exam, normal oropharynx, mucous membranes moist Neck exam: Present: normal inspection, full ROM. Absent: tenderness, meningismus, lymphadenopathy, thyromegaly Respiratory exam: Present: normal lung sounds bilaterally. Absent: respiratory distress, wheezes, rales, rhonchi, stridor, chest wall tenderness, accessory muscle use Cardiovascular Exam: Present: regular rate, normal rhythm, normal heart sounds. Absent: systolic murmur, diastolic murmur, rubs, gallop, clicks GI/Abdominal exam: Present: soft, distended, normal bowel sounds. Absent: tenderness, guarding, rebound, rigid Extremities exam: Present: normal inspection, full ROM, normal capillary refill. Absent: tenderness, pedal edema, joint swelling, calf tenderness Back exam: Present: normal inspection, full ROM. Absent: tenderness, CVA tenderness (R), CVA tenderness (L), muscle spasm, paraspinal tenderness, vertebral tenderness Neurological exam: Present: alert, oriented X3, CN II-XII intact Psychiatric exam: Present: normal affect, normal mood Skin exam: Present: warm, dry, intact, normal color, erythema (Medial aspect of the right lower tibia 8cm x 4cm). Absent: rash, cyanosis, diaphoretic, petechiae, pallor, mottled Course Vital Signs 06/08/21 06/08/21 06/08/21 14:40 16:06 16:40 Temperature 103.2 F H 102.3 F H Pulse Rate 86 65 Respiratory 20 18 18 Rate Blood Pressure 161/96 131/80 O2 Sat by Pulse 94 L 97 Oximetry Medical Decision Making - Medical Decision Making Chest x-ray shows no acute pulmonary process, some hyperinflation and flattening of diaphragm noted. WBC count 18.6 with a neutrophil count of 16.7. Patient does have an area of cellulitis to the right lower leg which will be treated with Keflex. Directed to follow up with his primary care doctor in 1 week with strict return parameters of any chest pain, shortness of breath, nausea or vomiting or worsening redness.. Covid PCR is negative. Case discussed with Dr. Rinaldi - Lab Data Result diagrams: 06/08/21 15:55 06/08/21 15:55 Lab Results 06/08/21 06/08/21 06/08/21 Range/Units 15:04 15:55 15:55 WBC 18.6 H (3.8-10.6) k/uL RBC 4.17 L (4.30-5.90) m/uL Hgb 13.8 (13.0-17.5) gm/dL Hct 40.7 (39.0-53.0) % MCV 97.5 (80.0-100.0) fL MCH 33.0 (25.0-35.0) pg MCHC 33.9 (31.0-37.0) g/dL RDW 13.0 (11.5-15.5) % Plt Count 242 (150-450) k/uL MPV 7.1 Neutrophils % 90 % Lymphocytes % 4 % Monocytes % 5 % Eosinophils % 1 % Basophils % 0 % Neutrophils # 16.7 H (1.3-7.7) k/uL Lymphocytes # 0.7 L (1.0-4.8) k/uL Monocytes # 0.9 (0-1.0) k/uL Eosinophils # 0.1 (0-0.7) k/uL Basophils # 0.0 (0-0.2) k/uL Sodium 134 L (137-145) mmol/L Potassium 4.3 (3.5-5.1) mmol/L Chloride 101 (98-107) mmol/L Carbon Dioxide 26 (22-30) mmol/L Anion Gap 7 mmol/L BUN 13 (9-20) mg/dL Creatinine 0.88 (0.66-1.25) mg/dL Est GFR (CKD-EPI)AfAm >90 (>60 ml/min/1.73 sqM) Est GFR (CKD-EPI)NonAf >90 (>60 ml/min/1.73 sqM) Glucose 118 H (74-99) mg/dL Calcium 9.3 (8.4-10.2) mg/dL Total Bilirubin 0.6 (0.2-1.3) mg/dL AST 38 (17-59) U/L ALT 59 H (4-49) U/L Alkaline Phosphatase 95 (38-126) U/L Total Protein 7.2 (6.3-8.2) g/dL Albumin 4.4 (3.5-5.0) g/dL Coronavirus (PCR) Not Detected (Not Detectd) - EKG Data EKG shows normal: sinus rhythm (Ventricular rate 85, MO interval 0.176, QRS of 0.94, QTC of 0.423) Disposition Clinical Impression: Cellulitis Disposition: HOME SELF-CARE Condition: Good Instructions (If sedation given, give patient instructions): Cellulitis (ED), Fever in Adults (ED) Additional Instructions: Take medication as prescribed and follow-up with your primary care doctor in 1 week. Return to the emergency room with worsening pain or redness. Take Tylenol for fever and pain. Prescriptions: Cephalexin [Keflex] 500 mg PO Q6HR 7 Days #28 cap Is patient prescribed a controlled substance at d/c from ED?: No Referrals: Orion Rodas DO [Primary Care Provider] - 1-2 days Time of Disposition: 16:37
[2021-06-08 16:06] VITALS: RESP 18
[2021-06-08 16:07] LABS: Basophils % (A) 0 %; Eosinophils # (A) 0.1 k/uL (0-0.7); Eosinophils % (A) 1 %; HCT 40.7 % (39.0-53.0); HGB 13.8 gm/dL (13.0-17.5); Lymphocytes # (A) 0.7 k/uL (1.0-4.8); Lymphocytes % (A) 4 %; MCHC 33.9 g/dL (31.0-37.0); MCV 97.5 fL (80.0-100.0); Mean Platelet Volume 7.1; Monocytes # (A) 0.9 k/uL (0-1.0); Monocytes % (A) 5 %; Neutrophils # (A) 16.7 k/uL (1.3-7.7); Neutrophils % (A) 90 %; Platelet Count 242 k/uL (150-450); RBC 4.17 m/uL (4.30-5.90); WBC 18.6 k/uL (3.8-10.6)
--- NOTE | 2021-06-08 16:11 | XR ---
EXAMINATION TYPE: XR chest 2V DATE OF EXAM: 06/08/2021 COMPARISON: 02/27/2021 INDICATION: Fever, weakness TECHNIQUE: Frontal and lateral views of the chest are obtained. FINDINGS: The heart size is normal. The pulmonary vasculature is normal. The lungs are clear. Some hyperinflation flattening the diaphragms is present. Correlate for COPD. IMPRESSION: 1. No acute pulmonary process. 2. COPD
[2021-06-08 16:12] LABS: ALT 59 U/L (4-49); AST 38 U/L (17-59); African American GFR (CKD) >90 (>60 ml/min/1.73 sqM); Albumin 4.4 g/dL (3.5-5.0); Alkaline Phosphatase 95 U/L (38-126); Anion Gap 7 mmol/L; Blood Urea Nitrogen 13 mg/dL (9-20); Calcium 9.3 mg/dL (8.4-10.2); Carbon Dioxide 26 mmol/L (22-30); Chloride 101 mmol/L (98-107); Glucose 118 mg/dL (74-99); Non-African American GFR(CKD) >90 (>60 ml/min/1.73 sqM); Potassium 4.3 mmol/L (3.5-5.1); Sodium 134 mmol/L (137-145); Total Bilirubin 0.6 mg/dL (0.2-1.3); Total Protein 7.2 g/dL (6.3-8.2)
[2021-06-08] MEDS ORDERED: IBUPROFEN 800 MG TAB PO STA (16:40)
[2021-06-08 18:14] VITALS: TEMP 98.6
[2021-06-08 18:16] VITALS: BP 128/76; PULSE 63
== END 2021-06-08 18:05 | disposition home or self-care (01) ==
LOC: EC 14:12
DX: L03.115 Cellulitis of right lower limb (principal); I10 Essential (primary) hypertension; E78.5 Hyperlipidemia, unspecified; I48.91 Unspecified atrial fibrillation; Z79.01 Long term (current) use of anticoagulants; Z79.82 Long term (current) use of aspirin; Z79.899 Other long term (current) drug therapy; Z86.73 Personal history of transient ischemic attack (TIA), and cerebral infarction without residual deficits; Z87.891 Personal history of nicotine dependence
CPT/HCPCS: 36415; 71046; 80053; 85025; 87635; 93005; 99285

== ENCOUNTER → 2021-06-17 | Outpatient (CLI) | payer BC ==
[2021-06-17 19:33] LABS: Basophils # (A) 0.03 X 10*3/uL (0.00-0.10); Basophils % (A) 0.4 %; Eosinophils # (A) 0.45 X 10*3/uL (0.04-0.35); Eosinophils % (A) 5.7 %; HCT 40.1 % (39.6-50.0); HGB 13.1 g/dL (13.0-17.0); Lymphocytes % (A) 31.8 %; MCH 32.3 pg (27.0-32.0); MCHC 32.7 g/dL (32.0-37.0); MCV 98.8 fL (80.0-97.0); Mean Platelet Volume 9.1 fL (9.5-12.2); Monocytes # (A) 0.75 X 10*3/uL (0.20-1.00); Monocytes % (A) 9.5 %; Neutrophils # (A) 3.99 X 10*3/uL (1.80-7.70); Neutrophils % (A) 50.8 %; Platelet Count 413 X 10*3/uL (140-440); RBC 4.06 X 10*6/uL (4.40-5.60); RDW 13.4 % (11.5-14.5); WBC 7.86 X 10*3/uL (4.50-10.00)
[2021-06-17 22:27] LABS: African American GFR (CKD) 105.7 (60.0-200.0); Anion Gap 9.3 mmol/L (4.00-12.00); BUN/Creat Ratio 12.22 Ratio (12.00-20.00); Calcium 9.2 mg/dL (8.7-10.3); Carbon Dioxide 26.7 mmol/L (21.6-31.8); Non-African American GFR(CKD) 91.2 (60.0-200.0); Potassium 5.2 mmol/L (3.5-5.5)
== END | disposition home or self-care (01) ==
LOC: LABWHC1 10:19
PROVIDERS: ATTEND Family Medicine
DX: L03.116 Cellulitis of left lower limb (principal); L03.115 Cellulitis of right lower limb; D72.829 Elevated white blood cell count, unspecified
CPT/HCPCS: 36415; 80048; 85025; 85379

== ENCOUNTER → 2022-01-11 | Outpatient (CLI) | payer BC ==
--- NOTE | 2022-01-11 11:26 | XR ---
EXAMINATION TYPE: XR chest 2V DATE OF EXAM: 01/11/2022 COMPARISON: Chest x-ray 06/08/2021 HISTORY: Bronchitis TECHNIQUE: Frontal and lateral views of the chest are obtained. FINDINGS: There is no focal air space opacity, pleural effusion, or pneumothorax seen. The cardiac silhouette size is within normal limits. Increased AP diameter of the chest with flattening the hemid iaphragms, increased retrosternal airspace and lung volume are again noted, there is eventration of t he right hemidiaphragm. Overlying soft tissue noted over the lateral lower chest bilaterally shows a symmetric appearance. There is bronchial wall thickening. The osseous structures are intact. IMPRESSION: Correlate for bronchitis, follow-up as indicated. Overlying soft tissue is thought to ca use the abnormal attenuation seen on the frontal chest x-ray as described in a relatively symmetric f ashion, follow-up as indicated.
== END | disposition home or self-care (01) ==
LOC: RADXRMAIN 10:13
PROVIDERS: ATTEND Family Medicine
DX: J20.9 Acute bronchitis, unspecified (principal); I48.91 Unspecified atrial fibrillation
CPT/HCPCS: 71046